=== PATIENT | male | born 1970 | race African-American/Black ===

== ENCOUNTER 2017-12-15 20:55 | Inpatient (IN) | payer OTHER, MEDICAID ==
[~2017-12-15] VITALS: Ht 185.4 cm; Wt 79.4 kg
[~2017-12-15 20:55] MED LIST: ATOR40TA70 PO
[2017-12-15] MEDS ORDERED: SODIUM CHLORIDE 0.9% 500 ML IV ONE (21:30)
[2017-12-15 21:51] LABS: BASOPHILS % 0.4 % (0.0-2.0); EOSINOPHILS % 0.3 % (0.0-5.0); HEMATOCRIT. 48.6 % (42.0-52.0); HEMOGLOBIN. 16.9 g/dL (14.0-18.0); LYMPHOCYTES % 21.7 % (20.0-50.0); MEAN CORPUSCULAR HEMOGLOBIN 35.3 pg (28.0-32.0); MEAN CORPUSCULAR VOLUME 101.3 fL (80.0-94.0); MEAN PLATELET VOLUME 8.7 fl (7.4-10.4); MONOCYTES % 9.9 % (2.0-8.0); NEUTROPHILS % 67.7 % (40.0-76.0); PLATELET 173 x1000/uL (130-400); RED CELL DISTRIBUTION WIDTH 13.8 % (11.6-14.6)
[2017-12-15 21:57] LABS: CHLORIDE 95 mEq/L (98-107)
[2017-12-15 22:01] LABS: ETHANOL BLOOD 223 mg/dL
[2017-12-15] MEDS ORDERED: ONDANSETRON HCL 4MG/2ML INJ IV STA (22:19)
[2017-12-15] MEDS ORDERED: METHYLPREDNISOLONE SOD SUCC 125 MG/2 ML VIAL IV STA (22:19)
[2017-12-15] MEDS ORDERED: MORPHINE SULFATE 4 MG/ML CPJ (NOT FOR IM USE) IV STA (22:19)
[2017-12-15] MEDS ORDERED: MAGNESIUM 2 G PREMIX 50 ML IV ONE (22:30)
[2017-12-15] MEDS ORDERED: POTASSIUM CHLORIDE 20MEQ TABLET SR PO ONE (22:30)
[2017-12-15] MEDS ORDERED: LEVOFLOXACIN 750MG PREMIX 150 ML IV ONE (22:30)
[2017-12-15] MEDS ORDERED: IPRATROPIUM/ALBUTEROL 0.5-3(2.5)MG/3ML NEB HHN ONE (22:30)
[2017-12-15 22:58] LABS: BG BASE EXCESS 2.4 mmol/L (-2.0-2.0); BG CARBOXYHEMOGLOBIN 4.6 % (0.5-1.5); BG DEOXYHEMOGLOBIN 14.1 % (0.0-5.0); BG FRACTION INSPIRED OXYGEN 21; BG HCO3 ACT 27.8 mmol/L (22.0-26.0); BG METHEMOGLOBIN 0.4 % (0.0-1.5); BG OXYGEN SATURATION 85.2 % (92.0-98.5); BG OXYHEMOGLOBIN 80.9 % (94.0-97.0); BG PCO2 45.3 mmHg (35.0-45.0); BG PH 7.406 (7.350-7.450); BG PO2 52.7 mmHg (75.0-100.0); BG SAMPLE SITE RIGHT RADIAL; BG TOTAL HEMOGLOBIN 17.3 g/dL (12.0-18.0); BG VENT MODE ROOM AIR
[2017-12-15 23:03] LABS: *AMPHETAMINES SCREEN URINE NEGATIVE (NEGATIVE)
[2017-12-15 23:04] LABS: *BARBITURATES SCREEN URINE NEGATIVE (NEGATIVE); *BENZODIAZEPINES SCREEN URINE NEGATIVE (NEGATIVE); *COCAINE SCREEN URINE NEGATIVE (NEGATIVE); CANNABINOID URINE SCREEN NEGATIVE (NEGATIVE); METHADONE URINE SCREEN NEGATIVE (NEGATIVE); OPIATES URINE SCREEN NEGATIVE (NEGATIVE); PHENCYCLIDINE URINE SCREEN NEGATIVE (NEGATIVE)
[2017-12-16] MEDS ORDERED: ONDANSETRON HCL 4MG/2ML INJ IV ONE (01:15)
[2017-12-16] MEDS ORDERED: MORPHINE SULFATE 4 MG/ML CPJ (NOT FOR IM USE) IV ONE (01:15)
[2017-12-16] MEDS ORDERED: AMLO5TAB88 PO (04:07)
[2017-12-16 04:10] VITALS: BP 141/103
[2017-12-16 04:24] VITALS: BP 141/103
[2017-12-16] MEDS ORDERED: ACETAMINOPHEN 325MG TABLET PO PRN (06:30)
[2017-12-16] MEDS ORDERED: ONDANSETRON HCL 4MG/2ML INJ IV PRN (06:30)
[2017-12-16] MEDS ORDERED: MAGNESIUM/ALUMINUM HYDROXIDE/SIMETHICONE 30ML UDC PO PRN (06:30)
[2017-12-16] MEDS ORDERED: METHYLPREDNISOLONE SOD SUCC 125 MG/2 ML VIAL IV SCH ×2 (06:30→16:00)
[2017-12-16] MEDS ORDERED: GUAIFENESIN 200MG/10ML SUGAR FREE UDC PO PRN (06:30)
[2017-12-16] MEDS ORDERED: CLONIDINE 0.1MG TABLET PO PRN (06:30)
[2017-12-16] MEDS ORDERED: DOCUSATE SODIUM 100MG CAPSULE PO PRN (06:30)
[2017-12-16] MEDS ORDERED: IPRATROPIUM/ALBUTEROL 0.5-3(2.5)MG/3ML NEB INH PRN (06:30)
[2017-12-16] MEDS ORDERED: ONDANSETRON 4MG ODT PO PRN (06:45)
[2017-12-16] MEDS: HYDROCODONE/ACETAMINOPHEN 5/325MG TABLET PO PRN ×4 (06:51→21:19)
[2017-12-16 08:00] VITALS: BP 164/109
[2017-12-16] MEDS: IPRATROPIUM/ALBUTEROL 0.5-3(2.5)MG/3ML NEB INH SCH ×3 (09:24→20:10)
[2017-12-16] MEDS: AMLODIPINE 10MG TABLET PO SCH (09:54)
[2017-12-16 11:42] VITALS: BP 138/97
[2017-12-16] MEDS ORDERED: LORAZEPAM 2MG/ML CPJ IV PRN ×2 (12:15→15:30)
[2017-12-16 13:22] LABS: BASOPHILS % 0.2 % (0.0-2.0); HEMATOCRIT. 45.7 % (42.0-52.0); HEMOGLOBIN. 15.8 g/dL (14.0-18.0); LYMPHOCYTES % 8.5 % (20.0-50.0); MEAN CORPUSCULAR HEMOGLOBIN 35.2 pg (28.0-32.0); MEAN CORPUSCULAR VOLUME 102.1 fL (80.0-94.0); MEAN PLATELET VOLUME 8.8 fl (7.4-10.4); MONOCYTES % 1.6 % (2.0-8.0); NEUTROPHILS % 89.7 % (40.0-76.0); PLATELET 151 x1000/uL (130-400); RED BLOOD CELL COUNT 4.48 mill/uL (4.7-6.1); RED CELL DISTRIBUTION WIDTH 14.2 % (11.6-14.6)
[2017-12-16 13:38] LABS: CHLORIDE 92 mEq/L (98-107)
[2017-12-16] MEDS ORDERED: NICOTINE 21MG PATCH TD SCH (15:30)
[2017-12-16] MEDS ORDERED: CHLORDIAZEPOXIDE 5 MG CAPSULE PO SCH (15:30)
[2017-12-16] MEDS ORDERED: THIAMINE HCL 100MG TABLET PO SCH (15:30)
[2017-12-16 16:00] VITALS: BP 149/98
[2017-12-16] MEDS: METHYLPREDNISOLONE SOD SUCC 40 MG/ML VIAL IV SCH ×2 (16:17→21:19)
[2017-12-16 20:00] VITALS: BP 128/90
[2017-12-16] MEDS ORDERED: RISPERIDONE 0.5MG TABLET PO SCH (21:00)
[2017-12-16] MEDS: CHLORDIAZEPOXIDE 5 MG CAPSULE PO SCH (21:19)
[2017-12-16] MEDS ORDERED: LEVOFLOXACIN 500MG PREMIX 100 ML IV SCH (23:00)
[2017-12-17] VITALS: BP 132/92
[2017-12-17] MEDS: IPRATROPIUM/ALBUTEROL 0.5-3(2.5)MG/3ML NEB INH SCH ×2 (03:43→08:21)
[2017-12-17] MEDS: METHYLPREDNISOLONE SOD SUCC 40 MG/ML VIAL IV SCH (05:54)
[2017-12-17] MEDS: CHLORDIAZEPOXIDE 5 MG CAPSULE PO SCH (05:54)
[2017-12-17] MEDS: HYDROCODONE/ACETAMINOPHEN 5/325MG TABLET PO PRN (06:10)
[2017-12-17 06:45] LABS: HEMATOCRIT. 42.9 % (42.0-52.0); HEMOGLOBIN. 14.7 g/dL (14.0-18.0); MEAN CORPUSCULAR HEMOGLOBIN 35.2 pg (28.0-32.0); MEAN CORPUSCULAR VOLUME 102.9 fL (80.0-94.0); MEAN PLATELET VOLUME 9.6 fl (7.4-10.4); PLATELET 137 x1000/uL (130-400); RED BLOOD CELL COUNT 4.17 mill/uL (4.7-6.1); RED CELL DISTRIBUTION WIDTH 14.4 % (11.6-14.6)
[2017-12-17 07:15] LABS: CHLORIDE 95 mEq/L (98-107)
[2017-12-17 08:00] VITALS: BP 120/80
[2017-12-17 08:25] LABS: PLATELET ESTIMATE NORMAL
[2017-12-17] MEDS: AMLODIPINE 10MG TABLET PO SCH (09:00)
[2017-12-17] MEDS ORDERED: THIAMINE HCL 100MG TABLET PO SCH (09:00)
[2017-12-17] MEDS ORDERED: NICOTINE 21MG PATCH TD SCH (09:00)
[2017-12-17] MEDS ORDERED: FOLIC ACID 1MG TABLET PO SCH (09:00)
[2017-12-17 10:08] VITALS: BP 110/95
== END 2017-12-17 10:45 | disposition home or self-care (01) | DRG 189 ==
LOC: ER 21:01 → 5WST 12-16 02:21 → EDBEDREQTM 12-16 02:24 → EDBEDREQ 12-16 02:24 → ENRESERV 12-16 02:49
PROVIDERS: ADMIT Hospitalist; ATTEND Hospitalist
DX: J96.00 Acute respiratory failure, unspecified whether with hypoxia or hypercapnia (principal); J44.1 Chronic obstructive pulmonary disease with (acute) exacerbation; J45.901 Unspecified asthma with (acute) exacerbation; G40.909 Epilepsy, unspecified, not intractable, without status epilepticus; I10 Essential (primary) hypertension; F17.210 Nicotine dependence, cigarettes, uncomplicated; F10.129 Alcohol abuse with intoxication, unspecified; R00.0 Tachycardia, unspecified; E78.5 Hyperlipidemia, unspecified; I25.10 Atherosclerotic heart disease of native coronary artery without angina pectoris; Y90.7 Blood alcohol level of 200-239 mg/100 ml; Z96.659 Presence of unspecified artificial knee joint; Z95.1 Presence of aortocoronary bypass graft
CPT/HCPCS: 36415; 36600; 71045; 80053; 80305; 82375; 82805; 83735; 83880; 84484; 85025; 85379; 93005; 93970; 94640; 96361; 96374; 96375; 96376; 99285; C1893; G0482; J1956; J2270; J2405; J2920; J2930; J3475; J7040; J7050; J7620

== ENCOUNTER 2017-12-21 14:13 | Emergency (ER) | payer OTHER, MEDICAID ==
[~2017-12-21] VITALS: Ht 175.3 cm; Wt 68.0 kg
[~2017-12-21 14:13] MED LIST changes: +AMLO5TAB88 PO; -ATOR40TA70 PO
[2017-12-21 14:15] VITALS: BP 129/81
== END 2017-12-21 18:03 | disposition left against medical advice (07) ==
LOC: ER 14:13
DX: R51 Headache (principal); Z53.21 Procedure and treatment not carried out due to patient leaving prior to being seen by health care provider